=== PATIENT | female | born 1960 | race Caucasian/White ===

== ENCOUNTER 2016-12-27 09:44 | Day surgery (SDC) | payer OTHER ==
[~2016-12-27] VITALS: Ht 160 cm; Wt 80.0 kg
[~2016-12-27 09:44] MED LIST: ACIDOPHILUS1 EAC3 PO; ANTIVERT25 MG PO; ASPIRIN325 MG PO; BIOTIN1000 MCG PO; CINNAMON500 MG PO; CRANBERRY450 M1 PO; Coumadin,Jantoven PO; ENDOCET 5-3251 EACH PO; Ecotrin PO; Fish Oil PO; LEVOTHYROXINE75 MCG PO; LIPITOR20 MG PO; LIPITOR80 MG PO; LISINOPRIL2.5 MG PO; LO-DOSE ASPIRIN81 M2 PO; Levothroid,Synthroid PO; Lipitor PO; Lopressor PO; MAGNESIUM250 MG PO; METOPROLOL TART25 MG PO; PROMETHAZINE HC25 M1 PO; Plavix PO; SYNTHROID88 MCG PO; TUMERIC PO; TURMERIC500 M1 PO; VITAMIN C1000 MG PO; VITAMIN D PO; VITAMIN D32000 UNI1 PO; ZOFRAN4 MG PO; Zestril,Prinivil PO
[2016-12-27 11:10] LABS: ANION GAP 8 MEQ/L (2-14); CHLORIDE 107 MEQ/L (99-109); POTASSIUM 4.3 MEQ/L (3.7-5.4); SAMPLE HEMOLYSIS CHECK 0; SAMPLE ICTERIC CHECK 0; SAMPLE LIPEMIA CHECK 0; SODIUM 143 MEQ/L (136-147)
[2016-12-27 11:15] LABS: GFR ESTIMATE (CALCULATED) > 59 mL/min/; GLUCOSE 93 mg/dL (70-99); UREA NITROGEN (BUN) 14 mg/dL (9-23)
== END 2016-12-27 21:30 | disposition home or self-care (01) ==
LOC: CATH 09:44
PROVIDERS: Internal Medicine Cardiovascular Disease
PROC: B2111ZZ Fluoroscopy of Multiple Coronary Arteries using Low Osmolar Contrast (ICD-10-PCS; principal; 2016-12-27)
PROC: 4A023N7 Measurement of Cardiac Sampling and Pressure, Left Heart, Percutaneous Approach (ICD-10-PCS; principal; 2016-12-27)
PROC: 4A033BC Measurement of Arterial Pressure, Coronary, Percutaneous Approach (ICD-10-PCS; principal; 2016-12-27)
DX: R07.9 Chest pain, unspecified (principal); R06.02 Shortness of breath; I25.10 Atherosclerotic heart disease of native coronary artery without angina pectoris; Z98.61 Coronary angioplasty status; I25.2 Old myocardial infarction; I25.5 Ischemic cardiomyopathy; I10 Essential (primary) hypertension; E78.01 Familial hypercholesterolemia; E03.9 Hypothyroidism, unspecified; Z82.49 Family history of ischemic heart disease and other diseases of the circulatory system; Z79.82 Long term (current) use of aspirin; Z88.8 Allergy status to other drugs, medicaments and biological substances
CPT/HCPCS: 80048; 85347; C1750; C1769; C1887; C1894; J0153; J1200; J1644; J2250; J3010; J7050